=== PATIENT | female | born 1990 | race Caucasian/White ===

== ENCOUNTER 2016-05-02 01:00 | Inpatient (IN) | payer BC ==
[2016-05-02] MEDS ORDERED: RINGERS SOLUTION,LACTATED 1,000 ML IV ONE (01:58)
[2016-05-02] MEDS ORDERED: LIDOCAINE HCL 50 ML VIAL PERI PRN (01:58)
[2016-05-02] MEDS ORDERED: OXYTOCIN/DEXTROSE 5%-WATER 30 UNITS/500 ML BAG IV ONE ×2 (01:58→19:41)
[2016-05-02 02:37] LABS: Cocaine Ur Negative (NEGATIVE); Urine Barbiturate Negative (NEGATIVE); Urine Benzodiazepines Negative (NEGATIVE); Urine Opiates Negative (NEGATIVE); Urine PCP Negative (NEGATIVE); Urine THC Negative (NEGATIVE)
[2016-05-02] MEDS: RINGERS SOLUTION,LACTATED 1,000 ML IV PRN ×2 (04:04→15:25)
[2016-05-02] MEDS: DEXTROSE 5%-LACTATED RINGERS 1,000 ML IV PRN ×2 (06:56→16:29)
[2016-05-02] MEDS ORDERED: BUPIVACAINE HCL/0.9 % NACL/PF 250 ML EP PRN (07:20)
[2016-05-02] MEDS ORDERED: BUPIVACAINE HCL/PF 30 ML VIAL EP ONE (07:20)
[2016-05-02] MEDS ORDERED: ONDANSETRON HCL/PF 2 MG/ML VIAL IV PRN (07:20)
[2016-05-02] MEDS ORDERED: NALOXONE HCL 1 MG/1 ML SYRG IV PRN (07:20)
--- NOTE | 2016-05-02 07:53 | OR ---
Anesthesia Procedure Note - Anesthesia Procedure Note Date of Service: 05/02/16 Narrative: Vital Signs - Last Taken Temp 36.5 C 05/02/16 07:21 Pulse 68 05/02/16 07:21 Resp 18 05/02/16 07:21 BP 123/75 05/02/16 07:21 Pulse Ox 100 05/02/16 07:21 05/02/16 07:51 ANESTHESIA PROCEDURE NOTE Date of Procedure: 05/02/2016. Time of procedure: 729. Performed by: Manjit Walls CRNA Pumping Station Engineer: None. Preprocedure diagnosis: Active labor. Post procedure diagnosis: Same. Procedure: Insertion of labor epidural. Indications: The patient is a 26 -year-old female in active labor requesting labor epidural for pain management. Findings: See below. Details of the procedure: The patient was placed in a sitting position. DuraPrep as well as Betadine swabs 3 was applied to the patient's back. Patient was then draped in a sterile fashion. Lidocaine 1% was infiltrated to the skin and subcutaneous tissues at the level of the L3 4 interspace. The epidural space was identified using a 18-gauge Tuohy needle with loss-of- resistance technique. Epidural catheter was inserted to a depth of 10 centimeters at skin. Negative test dose was elicited using 3 mL of 1.5% preservative-free lidocaine plus epinephrine 1 200,000. The epidural catheter was then taped and secured in place. A loading dose of 8 mL of 0.25% preservative-free bupivacaine was administered to the epidural catheter after negative aspiration for blood and CSF. EBL: Minimal. Fluids: N/A. Specimen: N/A. Post procedure condition: The patient tolerated the procedure well. No complications were noted. Thank you for this consultation. Manjit Walls CRNA
[2016-05-02] MEDS ORDERED: PENICILLIN G POTASSIUM 5 MILLIONUNT in DEXTROSE 5 % IN WATER 100 ML IV ONE ×2 (12:57)
--- NOTE | 2016-05-02 16:24 | PN ---
Progess Note - Interim Narrative: 05/02/16 16:17 Subjective-comfortable with epidural Objective- SVE- 80/0, or molding is noted FHTs- 120s, moderate variability, early decelerations, occasional late deceleration, 2 prolonged decelerations noted, no accelerations noted in the last 30 minutes, IUPC and FSE placed [place]- every 3-4 minutes Assessment and plan- Labor-augmented with Pitocin. With recent decelerations Pitocin was discontinued, position was changed, IV fluid bolus given, oxygen started and baby was noted to recover to baseline of 120s with moderate variability GBS status-negative, antibiotics were started due to prolonged rupture time Continue current plan of care. Anticipate vaginal delivery if baby will continue to tolerate labor.
[2016-05-02] MEDS ORDERED: PENICILLIN G POTASSIUM 2.5 MILLIONUNT in DEXTROSE 5 % IN WATER 100 ML IV SCH ×2 (17:00)
[2016-05-02] MEDS ORDERED: GLYCERIN/WITCH HAZEL LEAF 40 APPL BOX TP PRN (19:41)
[2016-05-02] MEDS ORDERED: BENZOCAINE/MENTHOL 81 SPRAY CAN TP PRN (19:41)
[2016-05-02] MEDS ORDERED: SENNOSIDES 8.6 MG TABLET PO PRN (19:41)
[2016-05-02] MEDS ORDERED: BISACODYL 10 MG SUPP.RECT RC PRN (19:41)
[2016-05-02] MEDS ORDERED: oxyCODONE HCL/ACETAMINOPHEN 1 TAB TABLET PO PRN ×2 (19:41)
[2016-05-02] MEDS ORDERED: HYDROCORTISONE 30 APPL TUBE TP PRN (19:41)
--- NOTE | 2016-05-02 19:52 | OR ---
Operative Report - Dictated Report Narrative: Spontaneous Vaginal Delivery Viable male with APGARS of 9 at 1 minute and 9 minutes. Delivered at 1921. Presentation was JACKY. A triple loose nuchal cord was noted and reduced after delivery of the head the anterior right shoulder delivered without difficulty followed by a left nuchal arm and the remainder of the baby. Spontaneous cry was noted to be was placed on the maternal abdomen and dried. The cord was clamped and cut after approximately 60 seconds. Weight: to be determined Placenta was delivered spontaneously and intact. The cord was noted to be especially long. First-degree right periurethral and first-degree midline vaginal lacerations were noted and hemostatic without repair. Estimated blood loss: 150 ml Mother and baby tolerated delivery well. History for Definition: * The number of deliveries resulting in a live the patient experienced prior to current hospitalization * The previous delivery of live twins or any live multiple gestation is considered one live event. *If primagravida or nulliparous is documented select zero for the number of previous live births. Live Events: 0
[2016-05-02] MEDS: DOCUSATE SODIUM 100 MG CAPSULE PO SCH (22:52)
[2016-05-03] MEDS: DOCUSATE SODIUM 100 MG CAPSULE PO SCH ×3 (00:14→21:01)
[2016-05-03] MEDS: SERTRALINE HCL 50 MG TABLET PO SCH (11:57)
[2016-05-03] MEDS: PRENATAL VIT#96/FERROUS FUM/FA 1 TAB TABLET PO SCH (11:58)
--- NOTE | 2016-05-03 13:23 | PN ---
Subjective - Date and Time Seen Date: 05/03/16 Time: 13:22 Objective - Vitals Vitals: Last Vital Signs Temp 36.4 C L 05/03/16 09:15 Pulse 82 05/03/16 09:15 Resp 20 05/03/16 09:15 BP 127/70 05/03/16 09:15 Pulse Ox 98 05/03/16 09:15 Patient denies complaints. Breast-feeding without difficulty. Bonding with baby well. Lochia wnl Abdomen - soft, nontender Uterus - firm, at umbilicus - 1 No calf tenderness Impression: day #1 - s/p spontaneous vaginal delivery. Plan: Continue routine care Cauti Physician Documentation - Urinary Catheter Management Urethral ([place]ores) Date of Insertion: 05/02/16 Time of Insertion: 08:10 Date of Removal: 05/02/16 Time of Removal: 19:20
[2016-05-03] MEDS: IBUPROFEN 800 MG TABLET PO PRN (18:03)
[2016-05-04] MEDS: DOCUSATE SODIUM 100 MG CAPSULE PO SCH ×2 (07:11→10:52)
[2016-05-04 07:39] VITALS: BP 120/67
[2016-05-04] MEDS: PRENATAL VIT#96/FERROUS FUM/FA 1 TAB TABLET PO SCH (10:52)
[2016-05-04] MEDS: SERTRALINE HCL 50 MG TABLET PO SCH (10:53)
[2016-05-04] MEDS: IBUPROFEN 800 MG TABLET PO PRN (10:55)
--- NOTE | 2016-05-04 11:51 | PN ---
Progess Note - Interim Narrative: 05/04/16 11:50 progress note Subjective: The patient is doing well. She is ambulating, voiding, tolerating by mouth. She has minimal pain and moderate lochia. Objective: General: No acute distress Abdomen: Soft, nontender, fundus is firm just below the umbilicus Extremities: minimal edema, nontender to palpation Assessment and plan: day 2 Feeding: Breast Pain: Controlled with by mouth medication control: Condoms Routine care. Discharge home today.
== END 2016-05-04 12:00 | disposition home or self-care (01) | DRG 775 ==
LOC: OB 01:00
PROVIDERS: ADMIT Obstetrics & Gynecology Gynecologic Oncology; ATTEND Obstetrics & Gynecology Gynecologic Oncology
PROC: 10E0XZZ Delivery of Products of Conception, External Approach (ICD-10-PCS; principal; 2016-05-02)
PROC: 4A1H7CZ Monitoring of Products of Conception, Cardiac Rate, Via Natural or Artificial Opening (ICD-10-PCS; 2016-05-02)
PROC: 10H07YZ Insertion of Other Device into Products of Conception, Via Natural or Artificial Opening (ICD-10-PCS; 2016-05-02)
PROC: 3E0S3CZ (ICD-10-PCS; 2016-05-02)
DX: O69.81X0 Labor and delivery complicated by cord around neck, without compression, not applicable or unspecified (principal); O76 Abnormality in fetal heart rate and rhythm complicating labor and delivery; O70.0 First degree perineal laceration during delivery; F41.9 Anxiety disorder, unspecified; Z3A.40 40 weeks gestation of pregnancy; Z37.0 Single live birth

== ENCOUNTER 2018-08-16 00:01 | Inpatient (IN) ==
[2018-08-16] MEDS ORDERED: OXYTOCIN/DEXTROSE 5%-WATER 30 UNITS/500 ML BAG IV ONE (06:15)
[2018-08-16] MEDS ORDERED: ONDANSETRON 4 MG TAB.RAPDIS PO PRN (06:15)
[2018-08-16] MEDS ORDERED: RINGER'S SOLUTION,LACTATED 1,000 ML IV ONE (06:15)
[2018-08-16] MEDS ORDERED: DEXTROSE 5%-LACTATED RINGERS 1,000 ML IV PRN (06:15)
[2018-08-16] MEDS ORDERED: NALOXONE HCL 1 MG/1 ML SYRG IV PRN (12:22)
[2018-08-16] MEDS ORDERED: ONDANSETRON HCL/PF 2 MG/ML VIAL IV PRN (12:22)
[2018-08-16] MEDS ORDERED: BUPIVACAINE HCL/0.9 % NACL/PF 250 ML EP PRN (12:22)
[2018-08-16] MEDS ORDERED: fentaNYL CITRATE/PF 50 MCG/ML AMPUL IT SCH (12:30)
--- NOTE | 2018-08-16 12:55 | ANES ---
Post Anesthesia Discharge - Transfer of Care Transfer of Care handoff given to nurse: Yes - Anesthesia Post Op Note Anesthesia Post Op Note: care transferred to OB RN
--- NOTE | 2018-08-16 12:55 | ANES ---
Anesthesia Pre Procedure Eval Vitals/Labs: Last Vital Signs Temp 36.1 C 08/16/18 12:50 Pulse 70 08/16/18 12:50 Resp 18 08/16/18 12:50 BP 130/89 08/16/18 12:50 Pulse Ox 99 08/16/18 12:50 HOME MEDICATIONS RX: Vit37/Iron/Folic Acid [Prenata Chewable Tablet] 1 ea PO DAILY 05/02/16 [Last Taken 06/29/18 21:00] sertraline 100 mg tablet 50 mg PO DAILY tab 02/21/18 [Last Taken 06/29/18 19:00] ferrous sulfate 325 mg (65 mg iron) tablet 325 mg PO DAILY #30 tab 05/23/18 [Last Taken 06/29/18 21:00] ascorbic acid (vitamin C) 500 mg capsule 1 mg PO DAILY cap 06/05/18 [Last Taken 06/29/18 21:00] Allergies/Adverse Reactions: Allergies Allergy/AdvReac Type Severity Reaction Status Date / Time No Known Allergies Allergy Verified 08/14/18 09:13 - Planned Procedure Planned Procedure: INDUCTION Medication List Reviewed:: Yes Allergies Verified: Yes Medical History (Updated 06/30/18 @ 14:15 by Obdulio Leary DO) Anemia Onset Date: 05/22/18 w/ Anxiety Onset Date: ~2014 inpatient treatment Intermenstrual bleeding Onset Date: ~06/04/14 Pelvic pain in female Onset Date: ~06/04/14 Vulvar cyst Onset Date: ~06/04/14 likely sebaceous or epidermal Onset Date: ~10/07/15 Surgical History (Updated 07/31/18 @ 09:35 by Kia Reagan CMA) H/O wisdom tooth extraction Onset Date: ~02/2011 Family History (Updated 01/23/18 @ 13:17 by Alyson Newby CMA) Grandmother Cancer breast-maternal grandmother Mother Alive and well Father Alive and well - Family Anesthesia History Family History:: no untoward family reactions to anesthesia - Airway/Neck/Teeth Within Normal Limits:: Yes Teeth Condition: intact Neck Exam: full range of motion Mallampatti Score: 2 Thyromental (T-M) distance: > 6 cm Mandibulo Hyoid distance: > 3 cm - Respiratory Smoking Status: Never smoker Sleep Apnea currently treated: No Sleep Apnea by current assessment: No - Cardiovascular Tolerate Activity: Good - Anesthesia Assessment and Plan ASA Class: PS, II, E Anesthesia Type Plan: Epidural Planned difficult intubation/equipment available: No
--- NOTE | 2018-08-16 12:56 | ANES ---
Post Anesthesia Assessment - Vital Signs Vitals: Last Vital Signs Temp 36.1 C 08/16/18 12:50 Pulse 70 08/16/18 12:50 Resp 18 08/16/18 12:50 BP 130/89 08/16/18 12:50 Pulse Ox 99 08/16/18 12:50 Airway Patency: Normal - Mental Status Level Of Consciousness: Awake - Pain Level Pain Score: 2 - N/V Assessment Nausea/Vomiting Presence: None Dehydration:: No
--- NOTE | 2018-08-16 12:57 | ANES ---
Anesthesia Procedure Note Procedure Note: ANESTHESIA PROCEDURE NOTE Date of Procedure: 08/16/2018 Time of procedure: 1230. Performed by: Loy Mccarthy CRNA Hair Cutter: None. Preprocedure diagnosis: Active labor. Post procedure diagnosis: Same. Procedure: Insertion of labor epidural. Indications: The patient is a 28-year-old multigravida female in active labor requesting labor epidural for pain management. Findings: See below. Details of the procedure: The patient was placed in a sitting position. Back was prepped with DuraPrep. Patient was then draped in a sterile fashion. Lidocaine 1% was infiltrated to the skin and subcutaneous tissues at the level of the L3 4 interspace. The epidural space was identified using a 18-gauge Tuohy needle with [id number] technique. 20 mcg fentanyl was given intrathecally using a 27 ga. spinal needle. Epidural catheter was inserted without difficulty. Negative test dose was elicited using 5 mL of 1.5% preservative-free lidocaine plus epinephrine 1 200,000. The epidural catheter was then taped and secured in place. EBL: Minimal. Fluids: N/A. Specimen: N/A. Post procedure condition: The patient tolerated the procedure well. No complications were noted. Thank you for this consultation. Street CRNA
[2018-08-16 13:25] LABS: Cocaine Ur Negative (NEGATIVE); Urine Barbiturate Negative (NEGATIVE); Urine Benzodiazepines Negative (NEGATIVE); Urine Opiates Negative (NEGATIVE); Urine PCP Negative (NEGATIVE); Urine THC Negative (NEGATIVE)
--- NOTE | 2018-08-16 16:23 | HP ---
Chief Complaint - Chief Complaint Date of Service: 08/16/18 Time of Service: 16:22 Chief Complaint: elective induction of labor History of Present Illness: 28 yo at 39 2/7 weeks presents for elective induction of labor. This complicated by anemia and anxiety. Rh positive Rubella immune GBS negative Medical History (Updated 08/16/18 @ 16:23 by Obdulio Leary DO) Anemia Onset Date: 05/22/18 w/ Anxiety Onset Date: ~2014 inpatient treatment Intermenstrual bleeding Onset Date: ~06/04/14 Pelvic pain in female Onset Date: ~06/04/14 Vulvar cyst Onset Date: ~06/04/14 likely sebaceous or epidermal Onset Date: ~10/07/15 Surgical History: Surgical History (Updated 07/31/18 @ 09:35 by Kia Reagan CMA) H/O wisdom tooth extraction Onset Date: ~02/2011 Family History: Family History (Updated 01/23/18 @ 13:17 by Alyson Newby CMA) Grandmother Cancer breast-maternal grandmother Mother Alive and well Father Alive and well Social History: Preferred Language Sinhala Smoking Status Never smoker (Last Updated 08/14/18 @ 09:32 by Obdulio Leary DO) No Social History Section defined Review Of Systems (GEN) - Review of Systems Generalized/Overall Review: Present: No Symptoms Reported EENTM: Present: No Symptoms Reported Respiratory: Present: No Symptoms Reported Cardiac: Present: No Symptoms Reported Abdominal: Present: Other - irregular contractions Genitourinary: Present: No Symptoms Reported Musculoskeletal: Present: No Symptoms Reported Neurological: Present: No Symptoms Reported Skin: Present: No Symptoms Reported Endocrine: Present: No Symptoms Reported Allergies/Adverse Reactions: Allergies Allergy/AdvReac Type Severity Reaction Status Date / Time No Known Allergies Allergy Verified 08/14/18 09:13 Home Medications: HOME MEDICATIONS Vit37/Iron/Folic Acid [Prenata Chewable Tablet] 1 ea PO DAILY 05/02/16 [Last Taken 06/29/18 21:00] sertraline 100 mg tablet 50 mg PO DAILY tab 02/21/18 [Last Taken 06/29/18 19:00] ferrous sulfate 325 mg (65 mg iron) tablet 325 mg PO DAILY #30 tab 05/23/18 [Last Taken 06/29/18 21:00] ascorbic acid (vitamin C) 500 mg capsule 1 mg PO DAILY cap 06/05/18 [Last Taken 06/29/18 21:00] Exam - Exam Vital Signs: Vital Signs - Last Taken Temp 36.1 C 08/16/18 12:50 Pulse 70 08/16/18 12:50 Resp 18 08/16/18 12:50 BP 130/89 08/16/18 12:50 Pulse Ox 99 08/16/18 12:50 Constitutional: Present: Alert, Oriented x3, Cooperative, No distress ENT Exam: Present: hearing grossly normal Breasts: Present: Exam deferred Respiratory: Present: lungs clear, no respiratory distress Cardiovascular/Chest: Present: normal peripheral pulses, regular rate, rhythm Abdomen: Present: soft, nontender, other - gravid /Rectal: Present: Other - 2/50/-2 upon admission Extremity: Present: no pedal edema, no calf tenderness Skin Exam: Present: normal color, warm/dry, no cyanosis Lymphatic: Present: no adenopathy Neurologic: Present: alert, normal mood/affect, oriented x 3 Appearance: Present: appropriate appearance, appropriate insight Eye contact: Present: cooperative, good eye contact Thoughts: Present: normal thought pattern, no apparent hallucination Diagnostic Studies: Laboratory Results Negative (NEGATIVE) 08/16/18 13:10 Negative (NEGATIVE) 08/16/18 13:10 Ur Phencyclidine Scrn Negative (NEGATIVE) 08/16/18 13:10 Urine Amphetamine Negative (NEGATIVE) 08/16/18 13:10 U Benzodiazepines Scrn Negative (NEGATIVE) 08/16/18 13:10 Negative (NEGATIVE) 08/16/18 13:10 Negative (NEGATIVE) 08/16/18 13:10 Assessment/Plan - Assessment/Plan (1) Elective induction of labor planned Assessment: Admit for pitocin induction of labor. Epidural PRN. Problem: Acute (2) Anxiety Problem: Chronic (3) Anemia Problem: Acute Qualifiers: Anemia type: iron deficiency Iron deficiency anemia type: inadequate dietary iron intake Qualified Code(s): D50.8 - Other iron deficiency anemias
--- NOTE | 2018-08-16 16:25 | PN ---
Progess Note - Interim Date: 08/16/18 Time: 16:23 - Seen several times since 714 Narrative: 08/16/18 16:24 Patient comfortable with epidural Vital signs stable. Pitocin at 6 mu/min. FHT:150 baseline, reassuring Contractions q 2-3 min Cervix: 4/80/-2, AROM-clear at 1052 Impression: Intrauterine at 39-2/7 weeks elective induction of labor Plan: Continue present plan
[2018-08-17] MEDS ORDERED: BENZOCAINE/MENTHOL 81 SPRAY CAN TP PRN (00:14)
[2018-08-17] MEDS ORDERED: HYDROCORTISONE 30 APPL TUBE TP PRN (00:14)
[2018-08-17] MEDS ORDERED: oxyCODONE HCL/ACETAMINOPHEN 1 TAB TABLET PO PRN ×2 (00:14)
[2018-08-17] MEDS ORDERED: OXYTOCIN/DEXTROSE 5%-WATER 30 UNITS/500 ML BAG IV ONE (00:14)
[2018-08-17] MEDS ORDERED: SENNOSIDES 8.6 MG TABLET PO PRN (00:14)
[2018-08-17] MEDS ORDERED: BISACODYL 10 MG SUPP.RECT RC PRN (00:14)
--- NOTE | 2018-08-17 00:17 | OR ---
Operative Report - Dictated Report Narrative: Spontaneous vaginal delivery of viable male at 2353 on 08/16/2018 with Apgars 8 and 9, weighing 3396 g in JUAN DAVID position, crying on mother's abdomen. Nuchal cord and right foot cord 1 reduced on perineum. Cord clamping delayed approximately 45 seconds Placenta delivered complete, intact, with three vessel cord Estimated blood loss: less than 50 ml Anesthesia: epidural Lacerations: None History for MU History for Definition: * The number of deliveries resulting in a live the patient experienced prior to current hospitalization * The previous delivery of live twins or any live multiple gestation is considered one live event. *If primagravida or nulliparous is documented select zero for the number of previous live births. Live Events: Live Events: 1
[2018-08-17] MEDS: IBUPROFEN 800 MG TABLET PO PRN ×3 (02:08→19:14)
[2018-08-17] MEDS: GLYCERIN/WITCH HAZEL LEAF 40 APPL BOX TP PRN ×2 (03:10→21:13)
[2018-08-17] MEDS ORDERED: ASCORBIC ACID 500 MG TABLET PO SCH (09:00)
[2018-08-17] MEDS ORDERED: PRENATAL VITS96/IRON FUM/FOLIC 1 TAB TABLET PO SCH (09:00)
[2018-08-17] MEDS ORDERED: SERTRALINE HCL 100 MG TABLET PO SCH (09:00)
[2018-08-17] MEDS ORDERED: SERTRALINE HCL 50 MG TABLET PO SCH (09:00)
[2018-08-17] MEDS ORDERED: FERROUS SULFATE 325 MG TABLET PO SCH (09:00)
[2018-08-17] MEDS: DOCUSATE SODIUM 100 MG CAPSULE PO SCH ×2 (09:02→21:10)
--- NOTE | 2018-08-17 11:33 | PN ---
Subjective - Date and Time Seen Date: 08/17/18 Time: 11:33 Objective - Vitals Vitals: Last Vital Signs Temp 36.5 C 08/17/18 09:12 Pulse 73 08/17/18 09:12 Resp 18 08/17/18 09:12 BP 105/58 08/17/18 09:12 Pulse Ox 96 08/17/18 09:12 Patient denies complaints. Breast-feeding Lochia wnl Abdomen - soft, nontender Uterus - firm, at umbilicus - 1 No calf tenderness Impression: day #1 - s/p spontaneous vaginal delivery. Plan: Continue routine care Cauti Physician Documentation - Urinary Catheter Management Urethral (Flores) Date of Insertion: 08/16/18 Time of Insertion: 13:26 Date of Removal: 08/16/18 Time of Removal: 23:38 Assessment/Plan - Problems/Diagnosis (1) Elective induction of labor planned Problem: Acute (2) Anxiety Problem: Chronic (3) Anemia Problem: Acute Qualifiers: Anemia type: iron deficiency Iron deficiency anemia type: inadequate dietary iron intake Qualified Code(s): D50.8 - Other iron deficiency anemias
[2018-08-18] MEDS: IBUPROFEN 800 MG TABLET PO PRN ×2 (01:25→09:55)
[2018-08-18 07:46] VITALS: BP 110/66
== END 2018-08-18 10:00 | disposition home or self-care (01) | DRG 807 ==
LOC: OB 06:09
PROVIDERS: ADMIT Obstetrics & Gynecology; ATTEND Obstetrics & Gynecology
CPT/HCPCS: 59025; 80307